=== PATIENT | male | born 1955 | race Hispanic/Latino ===

== ENCOUNTER → 2019-12-22 | Outpatient (CLI) | payer OTHER ==
--- NOTE | 2019-12-22 08:48 | Diagnostic Imaging Report ---
EXAM: CHEST 2 VIEWS DATE: 12/22/2019 8:15 AM INDICATION: Viral pneumonia COMPARISON: None FINDINGS: The trachea is midline. There are patchy airspace opacities identified throughout the lungs bilaterally. There is no evidence for lobar consolidation, pneumothorax, or significant volume pleural effusion. The cardiomediastinal silhouette is within normal limits. The pulmonary vasculature is not enlarged. No acute osseous abnormality is identified. IMPRESSION: Patchy airspace opacities identified throughout the lungs bilaterally which can be seen in the setting of a multifocal/viral infectious process. Signed by: Dr. Demetrius Elam MD on 12/22/2019 8:45 AM
== END ==
LOC: RAD 07:49
PROVIDERS: ATTEND Internal Medicine
DX: J12.9 Viral pneumonia, unspecified (principal)
CPT/HCPCS: 71046